=== PATIENT | male | born 1965 | race Caucasian/White ===

== ENCOUNTER 2020-11-14 20:08 | Inpatient (IN) | payer OTHER, SELFPAY ==
--- NOTE | 2020-11-14 20:10 | ECG_ITS ---
Test Reason : CHEST PAIN Blood Pressure : / mmHG Vent. Rate : 105 BPM Atrial Rate : 105 BPM P-R Int : 176 ms QRS Dur : 130 ms QT Int : 358 ms P-R-T Axes : 007 -66 085 degrees QTc Int : 473 ms Sinus tachycardia with Fusion complexes Left anterior fascicular block Left ventricular hypertrophy with QRS widening T wave abnormality, consider lateral ischemia Abnormal ECG No previous ECGs available Referred By: Generic ED Physician Electronically Signed By:THOMAS NGUYEN MD
[2020-11-14 20:14] VITALS: BP 184/111; PULSE 108; RESP 16; TEMP 36.8; O2SAT 98; BMI 49.2
[2020-11-14 21:39] VITALS: BP 153/104; PULSE 102; RESP 16; TEMP 36.6; O2SAT 99
[2020-11-14 21:56] LABS: MANUAL DIFF FLAG NO
[2020-11-14 21:57] LABS: Basophils Absolute Auto 0.1 X10*3/uL (0.0-0.2); Basophils Percent Auto 0.4 % (0-2); Eosinophils Absolute Auto 0.6 X10*3/uL (0.0-0.4); Eosinophils Percent Auto 5.4 % (0-4); Hematocrit 46.7 % (42-52); Hemoglobin 15.2 g/dl (14.0-18.0); Imm Gran Abs Auto 0.06 X10*3/uL (0.00-0.03); Imm Gran Pct Auto 0.5 % (0.0-0.4); Lymphocytes Absolute Auto 2.7 X10*3/uL (1.2-4.9); Mean Corpuscular HGB Conc 32.5 g/dl (31.0-36.0); Mean Corpuscular Hemoglobin 28.3 pg (27.0-33.0); Mean Platelet Volume 10.3 fL (9.4-12.4); Monocytes Absolute Auto 1.2 X10*3/uL (0.1-1.2); Monocytes Percent Auto 9.7 % (2-11); Neutrophils Absolute Auto 7.3 X10*3/uL (2.0-8.3); Platelet Count 346 X10*3/uL (160-400); Red Blood Count 5.37 X10*6/uL (4.60-5.80); Red Cell Distribution Width 13.9 % (11.0-16.0); White Blood Count 11.9 X10*3/uL (4.8-10.8)
[2020-11-14 22:21] LABS: Alanine Aminotransferase 46 U/L (0-40); Albumin Level 4.1 g/dL (3.5-5.0); Alkaline Phosphatase 65 U/L (39-117); Anion Gap 14 (12-20); Aspartate Amino Transferase 39 U/L (5-37); Bilirubin Total 0.6 mg/dL (0.0-1.0); Blood Urea Nitrogen 10 mg/dL (9-16); Calcium 8.8 mg/dL (8.4-10.2); Carbon Dioxide 32 mmol/L (22-29); Chloride 104 mmol/L (96-108); Creatinine Clr Calc Pharmacy 100.8; Estimated Glomerular Filt Rate > 60; Glucose Random 84 mg/dL (60-115); Potassium 4.1 mmol/l (3.3-5.1); Sodium 146 mmol/L (135-145)
[2020-11-14 22:25] LABS: Troponin-I High Sensitivity 20.5 ng/L (<3.5-35.0)
--- NOTE | 2020-11-14 22:52 | ED_ITS ---
HPI - Chest Pain General Chief Complaint: Chest Pain Stated Complaint: chest pain Time Seen by Provider: 11/14/20 22:52 Source: patient Mode of arrival: ambulatory Limitations: no limitations History of Present Illness HPI narrative: Patient's history of hypertension coronary disease status post stents about 4 years ago, cva, congestive heart failure paroxysmal AFib on Plavix comes here for chest pain since 08:00 while at rest patient feels chest heavy specially mid chest with radiation of pain to the right arm pain been off and on all day comes and goes states for few minutes also patient noticed numbness of the both lips since morning no motor weakness otherwise. Denies any increase in shortness of breath. Patient has chronic leg edema and is on diuretics patient took 4 baby aspirin today and 3 nitroglycerin spray without significant relief. Since patient had stent placed 4 years ago he had been h aving chest pain off and on but this time chest pain was more severe MD complaint: chest pain Pertinent past history: coronary artery disease and [employer] Onset (ago): hour(s) Timing of current episode: episodic Prior episodes: Yes Onset: during rest Pain location: substernal Pain radiation: right arm Severity: moderate Quality: heaviness and similar to prior IA Relieving factors: nothing Exacerbating factors: nothing Treatment prior to arrival: aspirin and nitroglycerin Related Data Allergies Allergy/AdvReac Type Severity Reaction Status Date / Time bee pollen [bee stings] Allergy Unknown Verified 11/14/20 20:13 hydromorphone [From Dilaudid] Allergy Unknown Verified 11/14/20 20:13 ketorolac [From Toradol] Allergy Unknown Verified 11/14/20 20:13 Penicillins Allergy Unknown Verified 11/14/20 20:13 tramadol Allergy Unknown Verified 11/14/20 20:13 Review of Systems Review of Systems: Constitutional : No Weight loss, No Fever, No Chills ENT/Mouth : No sore throat, No Rhinorrhea Eyes: No Eye Pain, No Swelling Cardiovascular : ++ Chest Pain, no palpitations Respiratory : No Cough, No Sputum, +++shortness of breath Gastrointestinal : no Nausea, No Vomiting, No Diarrhea, No abdominal Pain, no black stools Genitourinary : No Dysuria, No Urinary Frequency Musculoskeletal : No joint pain, No Myalgias, No Joint Swelling, leg swelling present Skin : No Skin Lesions, No rash Neuro : No Weakness, No Numbness, No Dizziness, No Headache Psych : No Anxiety/Panic, No Depression Heme/Lymph: No Bruising, No Lymphadenopathy Endocrine : No Polyuria, No Polydipsia All other systems reviewed and are negative [facility] Past Medical History Medical History CHF (congestive heart failure) High blood pressure Stroke Surgical History History of heart artery stent Social History Social History Alcohol intake: never Smoking Status: Never smoker Use of substances other than those prescribed or required for medical reasons: No Advance Directives: No Physical Exam Vital Signs: Vital Signs: Last Vital Signs Temp 97.8 F 11/14/20 21:39 Pulse 97 11/14/20 23:19 Resp 20 11/14/20 23:19 BP 142/109 H 11/14/20 23:19 Pulse Ox 94 11/14/20 23:19 Body Mass Index 49.2 Const: General: cooperative, healthy appearing, comfortable and no acute distress Nutritional Appearance: obese Orientation/consciousness: patient oriented x3 HENMT: Head: Yes normal to inspection and Yes normocephalic Ears: hearing grossly normal bilaterally, external ears normal and mastoids normal General nose exam: Normal external nose present Face and sinus: Yes normal facial exam Mouth: Normal oral and palatal mucosa present Teeth and gingiva: d entition normal Throat: Yes posterior oropharynx normal Eyes: General: appearance normal, both eyes and all related structures Neck: Neck: Yes normal visual inspection and Yes full ROM Chest: Chest palpation & inspection: normal inspection of the chest Resp: Effort & Inspection: normal respiratory effort Auscultation: clear to auscultation bilaterally, no crackles, no rales, no rhonchi and no wheezes Cardio: Jugular venous distension: no JVD Rate: regular rate Rhythm: regular rhythm Heart sounds: S1 normal heart sound present, S2 normal heart sound present and no murmurs Peripheral pulses: Peripheral pulses 2+ throughout GI: Inspection: Yes normal to inspection Palpation (GI): Soft to palpation and nontender Auscultation: normal bowel sounds Back/Spine/Pelvis: Thoracic/Lumbar Spine: thoracic and lumbar spine normal to inspection Skin: General skin exam: no rashes or lesions noted Neuro: General: patient oriented x3 and no focal motor deficits Extrem: General: Yes full ROM, Yes no calf tenderness and Yes pedal edema (4+ leg edema bilateral) MDM - Chest Pain MDM Narrative Medical decision making narrative: Patient with significant history of coronary artery disease with risk factors came with chest pain EKG showed fusion complexes without any acute ST T wave changes initial troponin was slightly elevated 20.5 repeat troponin was without any significant delta change patient feeling better after morphine. Head CT was done for lip numbness which is negative for any acute stroke. Will admit patient for unstable angina and further evaluation Differential Diagnosis Differential diagnosis: Likely stable angina, unstable angina pectoris and chest pain Lab Data Attestation: I reviewed the patient's lab results. Result diagrams: 11/14/20 21:38 11/14/20 21:38 Labs: Lab Results 11/14/20 11/14/20 11/14/20 Range/Units 21:38 21:38 21:38 WBC 11.9 H (4.8-10.8) X10*3/uL RBC 5.37 (4.60-5.80) X10*6/uL Hgb 15.2 (14.0-18.0) g/dl Hct 46.7 (42-52) % MCV 87.0 (80-98) fL MCH 28.3 (27.0-33.0) pg MCHC 32.5 (31.0-36.0) g/dl RDW 13.9 (11.0-16.0) % Plt Count 346 (160-400) X10*3/uL MPV 10.3 (9.4-12.4) fL Immature Gran % (Auto) 0.5 H (0.0-0.4) % Neut % (Auto) 61.0 (45-73) % Lymph % (Auto) 23.0 (20-40) % [place] % (Auto) 9.7 (2-11) % Eos % (Auto) 5.4 H (0-4) % Baso % (Auto) 0.4 (0-2) % Lymph # (Auto) 2.7 (1.2-4.9) X10*3/uL [place] # (Auto) 1.2 (0.1-1.2) X10*3/uL Eos # (Auto) 0.6 H (0.0-0.4) X10*3/uL Baso # (Auto) 0.1 (0.0-0.2) X10*3/uL Abs Immat Gran (auto) 0.06 H (0.00-0.03) X10*3/uL Absolute Neuts (auto) 7.3 (2.0-8.3) X10*3/uL Absolute Nucleated RBC 0.000 (0.0-0.012) X10*3/uL Nucleated RBC % (auto) 0.0 (0.0-0.2) /100WBC PT 12.6 (10.8-13.0) SEC INR 1.1 (0.9-1.1) APTT 35.2 (24.1-38.0) SEC Hold Blue Top SEE NOTE Sodium 146 H (135-145) mmol/L Potassium 4.1 (3.3-5.1) mmol/l Chloride 104 (96-108) mmol/L Carbon Dioxide 32 H (22-29) mmol/L Anion Gap 14 (12-20) BUN 10 (9-16) mg/dL Creatinine 1.19 (0.5-1.4) mg/dL Estim Creat Clear Calc 100.8 Estimated GFR > 60 Random Glucose 84 (60-115) mg/dL Calcium 8.8 (8.4-10.2) mg/dL Total Bilirubin 0.6 (0.0-1.0) mg/dL AST 39 H (5-37) U/L ALT 46 H (0-40) U/L Alkaline Phosphatase 65 (39-117) U/L Troponin I High Sens (<3.5-35.0) ng/L B-Natriuretic Peptide (<100) pg/mL Total Protein 7.0 (6.5-8.0) g/dL Albumin 4.1 (3.5-5.0) g/dL COVID-19 ([facility]I) (Negative) COVID-19 Clin Com 11/14/20 11/14/20 11/14/20 Range/Units 21:38 23:12 23:12 WBC (4.8-10.8) X10*3/uL RBC (4.60-5.80) X10*6/uL Hgb (14.0-18.0) g/dl Hct (42-52) % MCV (80-98) fL MCH (27.0-33.0) pg MCHC (31.0-36.0) g/dl RDW (11.0-16.0) % Plt Count (160-400) X10*3/uL MPV (9.4-12.4) fL Immature Gran % (Auto) (0.0-0.4) % Neut % (Auto) (45-73) % Lymph % (Auto) (20-40) % [place] % (Auto) (2-11) % Eos % (Auto) (0-4) % Baso % (Auto) (0-2) % Lymph # (Auto) (1.2-4.9) X10*3/uL [place] # (Auto) (0.1-1.2) X10*3/uL Eos # (Auto) (0.0-0.4) X10*3/uL Baso # (Auto) (0.0-0.2) X10*3/uL Abs Immat Gran (auto) (0.00-0.03) X10*3/uL Absolute Neuts (auto) (2.0-8.3) X10*3/uL Absolute Nucleated RBC (0.0-0.012) X10*3/uL Nucleated RBC % (auto) (0.0-0.2) /100WBC PT (10.8-13.0) SEC INR (0.9-1.1) APTT (24.1-38.0) SEC Hold Blue Top Sodium (135-145) mmol/L Potassium (3.3-5.1) mmol/l Chloride (96-108) mmol/L Carbon Dioxide (22-29) mmol/L Anion Gap (12-20) BUN (9-16) mg/dL Creatinine (0.5-1.4) mg/dL Estim Creat Clear Calc Estimated GFR Random Glucose (60-115) mg/dL Calcium (8.4-10.2) mg/dL Total Bilirubin (0.0-1.0) mg/dL AST (5-37) U/L ALT (0-40) U/L Alkaline Phosphatase (39-117) U/L Troponin I High Sens 20.5 21.2 (<3.5-35.0) ng/L B-Natriuretic Peptide 44 (<100) pg/mL Total Protein (6.5-8.0) g/dL Albumin (3.5-5.0) g/dL COVID-19 ([facility]I) Negative (Negative) COVID-19 Clin Com See Note ECG Data ECG #1: Interpretation: Sinus tachycardia with fusion complexes ventricular rate 105 beats per minute left axis deviation left ventricular hypertrophy no acute ST elevation Discharge Plan Discharge Clinical Impression: Unstable angina pectoris Patient Disposition: Admitted As Inpatient
[2020-11-14 23:13] LABS: INTERNATIONAL NORM RATIO 1.1 (0.9-1.1); Prothrombin Time 12.6 SEC (10.8-13.0)
[2020-11-14 23:16] LABS: Partial Thromboplastin Time 35.2 SEC (24.1-38.0)
[2020-11-14 23:19] VITALS: BP 142/109; PULSE 97; RESP 20; O2SAT 94
[2020-11-14] MEDS: Nitroglycerin 2 % Oint 1 GM Packet 1 INCH TRANSDERMA (23:19)
[2020-11-14] MEDS: Morphine Sulfate 4 MG/ML CARTRIDGE IVPUSH (23:20)
[2020-11-14 23:36] LABS: COVID-19 Test Negative (Negative); IDNOW Serial# 9DD0AD1C
[2020-11-14 23:47] LABS: Troponin-I High Sensitivity 21.2 ng/L (<3.5-35.0)
[2020-11-15] VITALS (11 sets, daily range): BP systolic 129–157; BP diastolic 65–109; PULSE 85–114; RESP 15–20; TEMP 36.6–37.1; O2SAT 2–96; BMI 48.8
--- NOTE | 2020-11-15 | CT_ITS ---
EXAMINATION: CT HEAD WITHOUT CONTRAST CLINICAL INFORMATION: Numbness of the lips. Question thalamic stroke COMPARISON: None TECHNIQUE: Contiguous axial imaging was performed from the skull base to vertex without intravenous administration of contrast. This CT examination was performed using dose optimization techniques as appropriate, variously including the following: *Automated exposure control *Adjustment of mA and/or kV according to patient size (this includes techniques or standardized protocols for targeted exams where dose is matched to indication/reason for exam; i.e. extremities or head) *Use of iterative reconstruction technique DLP: 836 mGy-cm FINDINGS: There is no evidence of acute intracranial hemorrhage or territorial infarction. No abnormal mass effect or midline shift is seen. Villavicencio to white matter differentiation is well preserved. No extra-axial fluid collections are identified. The ventricles are normal in size. There is no abnormal attenuation within the brain parenchyma. The thalami, in particular, are normal in attenuation. Incidental note is made of dolichoectasia of the intramural portion of the right vertebral artery. The osseous structures and soft tissues are normal. Bilateral mastoid effusions are noted. Paranasal sinuses are clear.. CT/CT head/brain wo con IMPRESSION: No acute intracranial pathology. Bilateral mastoid effusions. Recommend correlation for symptoms of mastoiditis.
[2020-11-15] MEDS: ondansetron HCL 4 MG/2 ML VIAL IVPUSH (00:53)
[2020-11-15] MEDS: Morphine Sulfate 4 MG/ML CARTRIDGE IVPUSH (00:54)
[2020-11-15 00:56] LABS: B Type Natriuretic Peptide 44 pg/mL (<100)
[2020-11-15] MEDS: Furosemide 100 MG/10 ML VIAL 60 MG IVPUSH ×2 (01:45→13:34)
--- NOTE | 2020-11-15 05:43 | XR_ITS ---
EXAMINATION: XR CHEST CLINICAL INFORMATION: Shortness of breath COMPARISON: None TECHNIQUE: Frontal view of the chest was obtained. FINDINGS: EKG leads overlie the chest. There is a linear opacity at the left lung base which contacts the left hemidiaphragm. No additional airspace opacities. No pneumothorax or pleural effusion. Cardiac and mediastinal contours are normal. Pulmonary vascular is unremarkable. No acute osseous findings. XR/XR chest 1V IMPRESSION: Linear opacities at left lung base contacting left hemidiaphragm, likely atelectasis. Pneumonia is also possible.
--- NOTE | 2020-11-15 07:11 | PM.IMHP ---
History of Present Illness Date of Service: 11/15/20 Chief Complaint: Chest pain This is a 55-year-old male with past medical history of AFib, coronary artery disease, CHF, hypertension, anxiety who presents to the hospital with complaints of chest pain. Patient describes the chest pain as midsternal, heavy something sitting on my chest , occurring at rest, intermittent, radiating to the right arm, associated with shortness of breath, no nausea or vomiting, no abdominal pain diarrhea constipation. Patient has also noticed swelling in his legs for the past 2-3 weeks, he has shortness of breath on exertion, orthopnea, PND. he has also noticed numbness around his lips with no weakness in arms or legs. No slurred speech or changes to his speech from baseline, and no droopiness of his face. Patient denies having any cough or sputum production. No fever or chills. A temp of 98.3?, heart rate of 108, respiratory rate of 16, blood pressure 184/111 which is now 155/109, O2 of 98% on room air although did desat and is now on 2 L of oxygen unclear how low his O2 went down to Labs are significant for WBC count of 11.9, sodium of 146, BUN of 10, creatinine of 1.19 (no baseline), AST of 39, ALT of 46, BNP of 44, COVID-19 negative, initial troponin of 20 trended to 21 with no delta Chest x-ray shows linear opacities at left lung base contact EKG shows fusion complexes with no evidence of ST T-wave changes suggestive of ACS Past medical history: AFib, CAD status post stent, CHF, hypertension, hyperlipidemia, depression and anxiety, Surgical history: Denies Family history: Denies Social history: Comes from home, denies tobacco alcohol or illicit drugs at this time Review of Systems Review of Systems: Yes all other systems are reviewed and are negative [facility] Medical History (Updated 11/15/20 @ 07:27 by Canelo Martinez MD) CHF (congestive heart failure) High blood pressure History of coronary artery disease Hyperlipidemia Paroxysmal A-fib Stroke Surgical History History of heart artery stent Social History Alcohol intake: never Smoking Status: Never smoker Use of substances other than those prescribed or required for medical reasons: No Advance Directives: No Meds Allergies Allergy/AdvReac Type Severity Reaction Status Date / Time bee pollen [bee stings] Allergy Unknown Verified 11/14/20 20:13 hydromorphone [From Dilaudid] Allergy Unknown Verified 11/14/20 20:13 ketorolac [From Toradol] Allergy Unknown Verified 11/14/20 20:13 Penicillins Allergy Unknown Verified 11/14/20 20:13 tramadol Allergy Unknown Verified 11/14/20 20:13 Home Medications Medication Instructions Recorded Confirmed Type aripiprazole 1 tab PO QAM 11/15/20 11/15/20 History atorvastatin 1 tab PO DAILY 11/15/20 11/15/20 History buspirone 1 tab PO TID 11/15/20 11/15/20 History carvedilol 1 tab PO BID 11/15/20 11/15/20 History fluoxetine 3 cap PO DAILY 11/15/20 11/15/20 History furosemide 1 tab PO BID 11/15/20 11/15/20 History lamotrigine 1 tab PO DAILY 11/15/20 11/15/20 History lorazepam 1 tab PO DAILY 11/15/20 11/15/20 History lurasidone [Latuda] 1 tab PO QAM 11/15/20 11/15/20 History nitroglycerin 1 spray SUBLINGUAL DIRECTED 11/15/20 11/15/20 History prazosin 1 cap PO BEDTIME 11/15/20 11/15/20 History Physical Exam Vital Signs and Narrative: Vital Signs: Last Vital Signs Temp 97.8 F 11/15/20 05:29 Pulse 104 H 11/15/20 06:21 Resp 16 11/15/20 06:21 BP 155/109 H 11/15/20 06:21 Pulse Ox 96 11/15/20 06:21 Body Mass Index 48.8 Const: General: cooperative and no acute distress Orientation/consciousness: patient oriented x3 Eyes: General: appearance normal, both eyes and all related structures Chest: Other: Reproducible midsternal chest pain on palpation Resp: Effort & Inspection: normal respiratory effort and able to speak in complete sentences Auscultation: clear to auscultation bilaterally Cardio: Rate: regular rate Rhythm: regular rhythm GI: Palpation (GI): Soft to palpation Auscultation: normal bowel sounds Skin: General skin exam: no rashes or lesions noted Neuro: General: patient oriented x3 Cognition (Neuro): normal cognition Extrem: Other: Has 2+ lower extremity edema bilaterally General: Yes normal to inspection Results Labs CBC and Chem 7: 11/14/20 21:38 11/14/20 21:38 Labs: Laboratory Results - last 24 hr 11/14/20 11/14/20 11/14/20 21:38 21:38 21:38 MCV 87.0 MCH 28.3 MCHC 32.5 RDW 13.9 Plt Count 346 MPV 10.3 Immature Gran % (Auto) 0.5 H Neut % (Auto) 61.0 Lymph % (Auto) 23.0 [place] % (Auto) 9.7 Eos % (Auto) 5.4 H Baso % (Auto) 0.4 Lymph # (Auto) 2.7 [place] # (Auto) 1.2 Eos # (Auto) 0.6 H Baso # (Auto) 0.1 Abs Immat Gran (auto) 0.06 H Absolute Neuts (auto) 7.3 Absolute Nucleated RBC 0.000 Nucleated RBC % (auto) 0.0 PT 12.6 INR 1.1 APTT 35.2 Hold Blue Top SEE NOTE Anion Gap 14 Estim Creat Clear Calc 100.8 Estimated GFR > 60 Random Glucose 84 Calcium 8.8 Total Bilirubin 0.6 AST 39 H ALT 46 H Alkaline Phosphatase 65 Troponin I High Sens B-Natriuretic Peptide Total Protein 7.0 Albumin 4.1 COVID-19 ([facility]) COVID-Duroline Com 11/14/20 11/14/20 11/14/20 21:38 23:12 23:12 MCV MCH MCHC RDW Plt Count MPV Immature Gran % (Auto) Neut % (Auto) Lymph % (Auto) [place] % (Auto) Eos % (Auto) Baso % (Auto) Lymph # (Auto) [place] # (Auto) Eos # (Auto) Baso # (Auto) Abs Immat Gran (auto) Absolute Neuts (auto) Absolute Nucleated RBC Nucleated RBC % (auto) PT INR APTT Hold Blue Top Anion Gap Estim Creat Clear Calc Estimated GFR Random Glucose Calcium Total Bilirubin AST ALT Alkaline Phosphatase Troponin I High Sens 20.5 21.2 B-Natriuretic Peptide 44 Total Protein Albumin COVID-19 ([facility]) Negative COVID-FRESS Clin Com See Note Imaging Radiologist's Impressions: Impressions Head CT 11/15/20 00:00 IMPRESSION: No acute intracranial pathology. Bilateral mastoid effusions. Recommend correlation for symptoms of mastoiditis. Chest X-Ray 11/15/20 05:43 IMPRESSION: Linear opacities at left lung base contacting left hemidiaphragm, likely atelectasis. Pneumonia is also possible. Assessment and Plan (1) Unstable angina pectoris: Status: Acute (2) Acute exacerbation of CHF (congestive heart failure): Qualifiers: Heart failure type: unspecified Qualified Code(s): I50.9 - Heart failure, unspecified Status: Acute This is a 55-year-old male with history of CHF, CAD who presents to the hospital with complaints of chest pain as well as dyspnea on exertion, orthopnea, PND # unstable angina - although sounds typical he also has reproducible chest pain - high sensitivity troponin slightly elevated with no delta - EKG shows fusion complexes with no ST T wave changes suggestive of ACS - has history of CAD 4 years ago status post stent placement Plan: - will admit to the hospital her cardiogram and consult Cardiology for further recommendation - nitroglycerin p.r.n. for chest pain # CHF exacerbation - although BNP is negative patient is very obese and may be falsely low - has dyspnea on exertion, orthopnea, PND, lower extremity edema, - on furosemide 80 mg at home - chest x-ray as above Plan: - will start him on Lasix 60 mg IV b.i.d. - strict I&O, daily weight, low-sodium diet - echocardiogram, cardiology consult # history of coronary artery disease - continue carvedilol, does not appear to be on aspirin # paroxysmal AFib - on carvedilol - does not appear to be on anticoagulation and is unclear why # depression anxiety - continue home meds of lorazepam, prazosin, fluoxetine, and buspirone as well as aripiprazole Prophylaxis: Heparin subQ
[2020-11-15] MEDS: Acetaminophen 325 MG TABLET 650 MG PO (08:40)
[2020-11-15] MEDS: LORazepam 1 MG TABLET PO (08:41)
[2020-11-15] MEDS: ARIPiprazole 30 MG TABLET PO (08:41)
[2020-11-15] MEDS: lamoTRIgine 100 MG TABLET PO (08:41)
[2020-11-15] MEDS: busPIRone HCl 5 MG TABLET PO ×3 (08:41→21:08)
[2020-11-15] MEDS: carvediloL 25 MG TABLET PO ×2 (08:43→21:07)
[2020-11-15] MEDS: Heparin Sodium,Porcine 5,000 UNIT/ML VIAL 5000 UNIT SUBCUT ×2 (08:44→19:39)
--- NOTE | 2020-11-15 08:50 | PC.NURSE ---
pt took only 1/2 tab (15mg) of his ability 30mg tab. pt states that all he takes and his md is aware because it makes him loopy pt refused his prozac 60mg and latuda 40mg states that he does not take these meds any more.
--- NOTE | 2020-11-15 09:28 | PC.NURSE ---
Pt expressing desire to leave AMA. He states he feels better and doesn't want to take up a bed when a sicker pt might need it. Risks discussed with pt. Dr Morrell notified, as well, will come see the pt.
--- NOTE | 2020-11-15 09:47 | PM.EVENT ---
Event Note Date of Service: 11/15/20 Event Note: Went to see the patient. Patient says he is going to sign against medical illness and wants to go home. Discussed with him in the risk. If patient decides to stay, will follow-up with her consult. Please advise as to when patient decides to be admitted as inpatient.
--- NOTE | 2020-11-15 11:33 | PM.CNCAR ---
History of Present Illness History of Present Illness Date of Service: 11/15/20 Requesting physician: Alena Morrell Consult reason: congestive heart failure Chief complaint: R/O ACS Narrative: We were consulted to see Brian because of chest discomfort and progressive shortness of breath and heart failure. He is a 55-year-old man with prior CAD with diagnose stenting, morbid obesity, hypertension, leg edema on chronic diuretic therapy at home. Patient came to the hospital, had seen primary cardiology in October when he had progressive leg edema. His Lasix was increased. However he continued to have progressive leg edema, weight gain, shortness of breath and yesterday came with retrosternal chest pressure. His initial troponins and subsequent troponins are slightly elevated but flat. His BNP is normal limits but clinical findings consistent with heart failure with fluid overload. He has been admitted. He was diuresed and given IV Lasix and has diuresed and feels better. However still remains fluid overloaded and Cardiology consult was called from further management plan. He remains on dual antiplatelet therapy for unclear reason. His last stenting as per him was 2015 at best. I have last cardiac catheterization from 2007 at [facility] which had shown nonobstructive CAD. He had an echocardiogram last August at [facility] which had shown normal LV systolic function with early diastolic dysfunction with mild LVH. Review of Systems Constitutional: Constitutional: Denies chills, Denies fever(s) and Reports weight gain Cardiovascular: Cardiovascular: Reports chest pain, Denies lightheadedness, Denies Loss of Consciousness, Denies palpitations, Reports dyspnea and Reports dyspnea on exertion Respiratory: Respiratory: Denies cough, Denies excessive phlegm production, Reports dyspnea and Reports dyspnea on exertion Gastrointestinal: Gastrointestinal: Reports no additional gastrointestinal complaints Musculoskeletal: Musculoskeletal: Reports no additional musculoskeletal complaints Neurologic: Reports system reviewed and no additional complaints, except as documented Psychiatric: Psychiatric: Reports no additional psychiatric complaints Endocrine: Endocrine: Reports no additional endocrine complaints and Denies palpitations PMFSH Past Medical History Medical History (Updated 11/15/20 @ 11:38 by Santos Griffin MD) CAD (coronary artery disease) CHF (congestive heart failure) High blood pressure History of coronary artery disease Hyperlipidemia Paroxysmal A-fib Stroke Surgical History Surgical History History of heart artery stent Social History Social History Alcohol intake: never Smoking Status: Never smoker Use of substances other than those prescribed or required for medical reasons: No Advance Directives: No Meds Allergies Allergy/AdvReac Type Severity Reaction Status Date / Time bee pollen [bee stings] Allergy Unknown Verified 11/14/20 20:13 hydromorphone [From Dilaudid] Allergy Unknown Verified 11/14/20 20:13 ketorolac [From Toradol] Allergy Unknown Verified 11/14/20 20:13 Penicillins Allergy Unknown Verified 11/14/20 20:13 tramadol Allergy Unknown Verified 11/14/20 20:13 Home Medications Medication Instructions Recorded Confirmed Type aripiprazole 1 tab PO QAM 11/15/20 11/15/20 History aspirin 81 mg PO DAILY 11/15/20 11/15/20 History atorvastatin 1 tab PO DAILY 11/15/20 11/15/20 History buspirone 1 tab PO TID 11/15/20 11/15/20 History carvedilol 1 tab PO BID 11/15/20 11/15/20 History clopidogrel 75 mg PO DAILY 11/15/20 11/15/20 History fluoxetine 3 cap PO DAILY 11/15/20 11/15/20 History furosemide 1 tab PO BID 11/15/20 11/15/20 History isosorbide mononitrate 30 mg PO QAM 11/15/20 11/15/20 History lamotrigine 1 tab PO DAILY 11/15/20 11/15/20 History lorazepam 1 tab PO DAILY 11/15/20 11/15/20 History lurasidone [Latuda] 1 tab PO QAM 11/15/20 11/15/20 History nitroglycerin 1 spray SUBLINGUAL DIRECTED 11/15/20 11/15/20 History prazosin 1 cap PO BEDTIME 11/15/20 11/15/20 History Physical Exam Vital Signs: Vital Signs: Last Vital Signs Temp 98.5 F 11/15/20 10:57 Pulse 91 11/15/20 10:57 Resp 20 11/15/20 10:57 BP 156/93 H 11/15/20 10:57 Pulse Ox 96 11/15/20 10:57 Body Mass Index 48.8 Const: General: cooperative, comfortable, no acute distress, alert and awake Nutritional Appearance: obese morbidly obese Orientation/consciousness: patient oriented x3 HENMT: Head: Yes normocephalic and Yes atraumatic Neck: Neck: Yes trachea midline, Yes supple and Yes other (JVD difficult to assess) Chest: Chest palpation & inspection: normal inspection of the chest Resp: Effort & Inspection: normal respiratory effort Auscultation: clear to auscultation bilaterally Cardio: Rate: regular rate Rhythm: regular rhythm Heart sounds: S1 normal heart sound present and S2 normal heart sound present GI: Inspection: Yes Abdominal panniculus present and Yes obesity Auscultation: normal bowel sounds Skin: General skin exam: no rashes or lesions noted Neuro: General: patient oriented x3 Extrem: General: No clubbing, No cyanosis and Yes edema Results Labs and Meds Result diagrams: 11/14/20 21:38 11/14/20 21:38 Lab results: Laboratory Results - last 24 hr 11/14/20 11/14/20 11/14/20 21:38 21:38 21:38 WBC 11.9 H RBC 5.37 Hgb 15.2 Hct 46.7 MCV 87.0 MCH 28.3 MCHC 32.5 RDW 13.9 Plt Count 346 MPV 10.3 Immature Gran % (Auto) 0.5 H Neut % (Auto) 61.0 Lymph % (Auto) 23.0 Mcminn % (Auto) 9.7 Eos % (Auto) 5.4 H Baso % (Auto) 0.4 Lymph # (Auto) 2.7 Mcminn # (Auto) 1.2 Eos # (Auto) 0.6 H Baso # (Auto) 0.1 Abs Immat Gran (auto) 0.06 H Absolute Neuts (auto) 7.3 Absolute Nucleated RBC 0.000 Nucleated RBC % (auto) 0.0 PT 12.6 INR 1.1 APTT 35.2 Hold Blue Top SEE NOTE Sodium 146 H Potassium 4.1 Chloride 104 Carbon Dioxide 32 H Anion Gap 14 BUN 10 Creatinine 1.19 Estim Creat Clear Calc 100.8 Estimated GFR > 60 Random Glucose 84 Calcium 8.8 Total Bilirubin 0.6 AST 39 H ALT 46 H Alkaline Phosphatase 65 Troponin I High Sens B-Natriuretic Peptide Total Protein 7.0 Albumin 4.1 COVID-19 ([facility]) COVID-19 Clin Com 11/14/20 11/14/20 11/14/20 21:38 23:12 23:12 WBC RBC Hgb Hct MCV MCH MCHC RDW Plt Count MPV Immature Gran % (Auto) Neut % (Auto) Lymph % (Auto) Mcminn % (Auto) Eos % (Auto) Baso % (Auto) Lymph # (Auto) Mcminn # (Auto) Eos # (Auto) Baso # (Auto) Abs Immat Gran (auto) Absolute Neuts (auto) Absolute Nucleated RBC Nucleated RBC % (auto) PT INR APTT Hold Blue Top Sodium Potassium Chloride Carbon Dioxide Anion Gap BUN Creatinine Estim Creat Clear Calc Estimated GFR Random Glucose Calcium Total Bilirubin AST ALT Alkaline Phosphatase Troponin I High Sens 20.5 21.2 B-Natriuretic Peptide 44 Total Protein Albumin COVID-19 (NAOMI) Negative COVID-19 Clin Com See Note EKG shows sinus tachycardia with LVH with repolarization abnormality Imaging Radiologist's impression: Impressions Head CT 11/15/20 00:00 IMPRESSION: No acute intracranial pathology. Bilateral mastoid effusions. Recommend correlation for symptoms of mastoiditis. Chest X-Ray 11/15/20 05:43 IMPRESSION: Linear opacities at left lung base contacting left hemidiaphragm, likely atelectasis. Pneumonia is also possible. Assessment and Plan (1) Acute exacerbation of CHF (congestive heart failure): Qualifiers: Heart failure type: unspecified Qualified Code(s): I50.9 - Heart failure, unspecified Status: Acute Clinical presentation consistent with acute heart failure exacerbation. Continue IV diuresis. Strict intake and output chart needs to be pursued. BNP appears to be falsely negative given his body habitus. High likelihood of underlying obstructive sleep apnea. Should consider workup as an outpatient. Continue to monitor renal function. Once he has adequate diuresis can potentially be discharged home on his usual dose of Lasix. He would be a good candidate as an outpatient for CardioMEMS device for future management of his fluid status. Blood pressure is not well controlled. Add Aldactone 25 mg to his regimen for both heart failure as well as better control of his blood pressure. There is reported history of atrial fibrillation, do not see any clear documentation [facility] chart about the same. Would avoid oral anticoagulation therapy. (2) CAD (coronary artery disease): Status: Acute CAD with stenting more than 4 years ago. Currently present with chest pain which most likely is related to elevated filling pressures rather than acute coronary syndrome. Troponins are flat and minimally elevated due to acute heart failure. No need for anticoagulation. Will continue to monitor. Can follow up with outpatient ischemic workup with his primary telegraph dispatcher. This clearly no indication for dual antiplatelet therapy at this point time. Would stop Plavix. Continue statin therapy. Continue aggressive blood pressure control. Will follow with the patient. Thank you for allowing us to partake in his care
--- NOTE | 2020-11-15 13:33 | MHC.CM.PN ---
CM met with Patient at bedside. 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 The goal for dc is to return home and CM has initiated and will follow for dc planning. PCP is Dr. Graeme Ayala, from [place]. IMM addressed with Patient and the original has been given to him and a copy has been placed on the chart.Patient's is his HCP, and his Sister will provide transportation back home.
[2020-11-15] MEDS: 0.9 % Sodium Chloride Flush 3 ML SYRINGE IVFLUSH ×3 (13:35→21:14)
[2020-11-15] MEDS: Aspirin Enteric Coated 81 MG TABLET.DR PO (13:35)
--- NOTE | 2020-11-15 16:09 | PC.NURSE ---
Patient admitted to [facility] as observation patient from ED at approximately 1200. Vitals stable on 2L NC. 60 mg IV lasix given with positive effect. No further complaints of chest pain. Will continue to monitor.
--- NOTE | 2020-11-15 17:51 | PM.EVENT ---
Event Note Date of Service: 11/16/20 Event Note: Patient seen and examined-came to the hospital because of chest pain and shortness of breath Shortness of breath progressively getting worse from last few days, but has chronically short of breath from couple of months. Patient says his chest tightness seems improving as well as shortness of breath-received Lasix in ed Physical exam: Constitutional: Not in acute distress Cvs: rrr, [id number] , no murmur res: clear to auscultation ,no rhonchii or wheezing abd: no rebound or guarding ,nt, bs present. ext pulses present , no cyanosis neuro: axo3 , nonfocal. Assessment and plan already documented in H&P note: acute heart failure exacerbation. Continue IV diuresis. Strict i/o. BNP appears to be falsely negative given his body habitus. Continue IV Lasix, Aldactone 25 mg . High likelihood of underlying obstructive sleep apnea. Should consider workup as an outpatient. Continue to monitor renal function. Add to his regimen for both heart failure as well as better control of his blood pressure. There is reported history of atrial fibrillation, do not see any clear documentation [facility] chart about the same. Would avoid oral anticoagulation therapy. CAD with stenting more than 4 years ago. : chest tightness probable sec to chf . Troponins are flat and minimally elevated due to acute heart failure. No need for anticoagulation. 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 This clearly no indication for dual antiplatelet therapy at this point time. Would stop Plavix and asa .
[2020-11-15] MEDS: Prazosin HCL 5 MG CAPSULE PO (21:08)
[2020-11-15] MEDS: Atorvastatin Calcium 40 MG TABLET PO (21:08)
[2020-11-16] VITALS: BP 112/54; PULSE 87; RESP 20; TEMP 36.9; O2SAT 95
[2020-11-16] MEDS: Furosemide 100 MG/10 ML VIAL 60 MG IVPUSH (01:26)
[2020-11-16 03:54] VITALS: BP 99/55; PULSE 92; RESP 18; TEMP 36.6; O2SAT 95
[2020-11-16 05:53] LABS: MANUAL DIFF FLAG NO
[2020-11-16 05:57] LABS: Basophils Percent Auto 0.4 % (0-2); Eosinophils Absolute Auto 0.6 X10*3/uL (0.0-0.4); Eosinophils Percent Auto 6.7 % (0-4); Hematocrit 46.7 % (42-52); Imm Gran Abs Auto 0.04 X10*3/uL (0.00-0.03); Imm Gran Pct Auto 0.4 % (0.0-0.4); Lymphocytes Absolute Auto 1.7 X10*3/uL (1.2-4.9); Lymphocytes Percent Auto 17.8 % (20-40); Mean Corpuscular HGB Conc 32.1 g/dl (31.0-36.0); Mean Corpuscular Hemoglobin 28.6 pg (27.0-33.0); Mean Corpuscular Volume 89.1 fL (80-98); Mean Platelet Volume 10.6 fL (9.4-12.4); Monocytes Absolute Auto 0.5 X10*3/uL (0.1-1.2); Monocytes Percent Auto 5.8 % (2-11); Neutrophils Absolute Auto 6.4 X10*3/uL (2.0-8.3); Neutrophils Percent Auto 68.9 % (45-73); Platelet Count 318 X10*3/uL (160-400); Red Blood Count 5.24 X10*6/uL (4.60-5.80); White Blood Count 9.3 X10*3/uL (4.8-10.8)
[2020-11-16 06:24] VITALS: BMI 47.4
[2020-11-16 06:44] LABS: Anion Gap 15 (12-20); Blood Urea Nitrogen 17 mg/dL (9-16); Calcium 8.8 mg/dL (8.4-10.2); Carbon Dioxide 36 mmol/L (22-29); Chloride 97 mmol/L (96-108); Creatinine Clr Calc Pharmacy 93.9; Estimated Glomerular Filt Rate 60; Glucose Random 143 mg/dL (60-115); Potassium 4.3 mmol/l (3.3-5.1); Sodium 144 mmol/L (135-145)
[2020-11-16 08:21] VITALS: BP 122/70; PULSE 75; RESP 20; TEMP 36.2; O2SAT 92
[2020-11-16] MEDS: Furosemide 100 MG/10 ML VIAL 40 MG IVPUSH (09:23)
[2020-11-16] MEDS: Heparin Sodium,Porcine 5,000 UNIT/ML VIAL 5000 UNIT SUBCUT (09:24)
[2020-11-16] MEDS: 0.9 % Sodium Chloride Flush 3 ML SYRINGE IVFLUSH (09:24)
[2020-11-16] MEDS: Lurasidone HCl 40 MG TABLET PO (09:25)
[2020-11-16] MEDS: LORazepam 1 MG TABLET PO (09:25)
[2020-11-16] MEDS: Spironolactone 25 MG TABLET PO (09:25)
[2020-11-16] MEDS: ARIPiprazole 30 MG TABLET PO (09:25)
[2020-11-16] MEDS: Aspirin Enteric Coated 81 MG TABLET.DR PO (09:25)
[2020-11-16] MEDS: FLUoxetine HCl 20 MG CAPSULE 60 MG PO (09:25)
[2020-11-16] MEDS: busPIRone HCl 5 MG TABLET PO (09:25)
[2020-11-16] MEDS: lamoTRIgine 100 MG TABLET PO (09:25)
[2020-11-16 11:34] VITALS: BMI 47.4
--- NOTE | 2020-11-16 12:14 | P.CDIC_ITS ---
CDI Concurrent Query Service Date: 11/16/20 Documentation Clarification: Please clarify if you are treating a proba ble/suspected/likely or confirmed: Acute Diastolic CHF Acute Systolic CHF Acute Diastolic and Systolic CHF Acute on Chronic Diastolic CHF Acute on Chronic Systolic CHF Acute on Chronic Diastolic and Systolic CHF- yes . Provider Response: Other Other Diagnosis: chf acute on ch ( systolic/diastolic) PLEASE DO NOT DELETE/MODIFY EXISTING CONTENT Additional information is needed in order to code to the highest accuracy and appropriate Severity of Illness (SOI). Please clarify the information noted below in your progress notes and discharge summary. Risk Factors/Clinical Indicators/Treatments 55 year old male admitted with chest pain right arm pain, edema PMH: HTN, CAD sp stents, CVA, CHF, Paroxysmal Atrial Fibrillation BNP 44 Per H&P: Acute Exacerbation CHF Per Cardiology Consult, ECHO last done at [facility] August 2020, normal LV systolic function with early diastolic dysfunction with mild LVH CDS: Vannesa Mortensen RN Contact Number: [phone] Please Review the information above and exercise your independent professional judgment in responding to the query. If you concur, pleas document in the PROGRESS NOTES and DISCHARGE SUMMARY. If you do not agree with the query, please document in the query above. THIS QUERY IS PART OF THE PERMANENT MEDICAL RECORD
--- NOTE | 2020-11-16 12:19 | P.DS_ITS ---
DS: Providers Provider Date of Service: 11/16/20 Date of admission: 11/15/20 01:13 Primary care physician: Unknown Physician Consults: 11/15/20 01:13 Consult to Cardiology Routine Consulting Provider: Santos Griffin Reason for consultation: chf?, typical chest pain, r/o ACS Has provider been notified: No DS: Diagnosis Discharge Diagnosis (1) Acute exacerbation of CHF (congestive heart failure): Status: Acute (2) CAD (coronary artery disease): Status: Acute DS: Medications Discharge Medications Home Medications: Home Medications Medication Instructions Recorded Confirmed aripiprazole 1 tab PO QAM 11/15/20 11/15/20 aspirin 81 mg PO DAILY 11/15/20 11/15/20 atorvastatin 1 tab PO DAILY 11/15/20 11/15/20 buspirone 1 tab PO TID 11/15/20 11/15/20 carvedilol 1 tab PO BID 11/15/20 11/15/20 clopidogrel 75 mg PO DAILY 11/15/20 11/15/20 fluoxetine 3 cap PO DAILY 11/15/20 11/15/20 furosemide 1 tab PO BID 11/15/20 11/15/20 isosorbide mononitrate 30 mg PO QAM 11/15/20 11/15/20 lamotrigine 1 tab PO DAILY 11/15/20 11/15/20 lorazepam 1 tab PO DAILY 11/15/20 11/15/20 lurasidone [Latuda] 1 tab PO QAM 11/15/20 11/15/20 nitroglycerin 1 spray SUBLINGUAL DIRECTED 11/15/20 11/15/20 prazosin 1 cap PO BEDTIME 11/15/20 11/15/20 DS: Summary Hospital Course Hospital Course: 55-year-old male with past medical history of AFib, coronary artery disease, CHF, hypertension, anxiety who presents to the hospital with complaints of chest pain. Patient describes the chest pain as midsternal, heavy something sitting on my chest , occurring at rest, intermittent, radiating to the right arm, associated with shortness of breath, no nausea or vomiting, no abdominal pain diarrhea constipation. Patient has also noticed swelling in his legs for the past 2-3 weeks, he has shortness of breath on exertion, orthopnea, PND. he has also noticed numbness around his lips with no weakness in arms or legs. No slurred speech or changes to his speech from baseline, and no droopiness of his face. Patient denies having any cough or sputum production. No fever or chills. A temp of 98.3?, heart rate of 108, respiratory rate of 16, blood pressure 184/111 which is now 155/109, O2 of 98% on room air although did desat and is no w on 2 L of oxygen unclear how low his O2 went down to Labs are significant for WBC count of 11.9, sodium of 146, BUN of 10, creatinine of 1.19 (no baseline), AST of 39, ALT of 46, BNP of 44, COVID-19 negative, initial troponin of 20 trended to 21 with no delta Chest x-ray shows linear opacities at left lung base contact EKG shows fusion complexes with no evidence of ST T-wave changes suggestive of ACS Past medical history: AFib, CAD status post stent, CHF, hypertension, hyperlipidemia, depression and anxiety. Hospital Course problem sales section: 1.acute heart failure exacerbation systolic/diastolic. Patient came to the hospital because shortness of breath found to have CHF exacerbation: Started on IV diuresis and patient diuresed well, his shortness of breath is improved and not requiring any oxygen. Seen by Cardiology and followed during this admission recommended to start on p.o. Bumex and Aldactone upon discharge. CHF education given. Patient is to follow-up with PCP and Cardiology out patiently. His clopidogrel was stopped as per Cardiology due to history of cardiac stent for years back. Also in addition we adjusted his Coreg 18.75 mg po bid due to acceptable blood pressure and addition of Bumex/aldactone. also his High likelihood of underlying obstructive sleep apnea. Should consider workup as an outpatient. 2. CAD with stenting more than 4 years ago. : chest tightness probable sec to chf . Troponins are flat and minimally elevated due to acute heart failure. No need for anticoagulation. Can follow up with outpatient ischemic workup with his primary surgical processor. This clearly no indication for dual antiplatelet therapy at this point time. Would stop Plavix and asa . Above management discussed with the patient in detail length he understand and in agreement with the above plan, time spent 50 minutes and 50% time spent on counseling. Significant findings: As above. Procedures performed: None. Treatment and response: As above. Complications: None. Time Spent with Patient Time attestation: Total time spent providing and/or coordinating discharge services: Discharge coordination time: Greater than 30 minutes Physical Exam Vital Signs: Vital Signs: Last Vital Signs Temp 97.2 F 11/16/20 08:21 Pulse 75 11/16/20 08:21 Resp 20 11/16/20 08:21 BP 122/70 11/16/20 08:21 Pulse Ox 92 11/16/20 08:21 Body Mass Index 47.4 Physical exam: Constitutional: Not in acute distress. Cvs: rrr, [id number] , no murmur res: clear to auscultation ,no rhonchii or wheezing abd: no rebound or guarding ,nt, bs present. ext pulses present , no cyanosis neuro: axo3 , nonfocal. DS: Data Data Completed and Pending Labs on day of discharge: Laboratory Tests 11/14/20 11/14/20 11/14/20 21:38 21:38 21:38 WBC 11.9 H RBC 5.37 Hgb 15.2 Hct 46.7 MCV 87.0 MCH 28.3 MCHC 32.5 RDW 13.9 Plt Count 346 MPV 10.3 Immature Gran % (Auto) 0.5 H Neut % (Auto) 61.0 Lymph % (Auto) 23.0 Hayes % (Auto) 9.7 Eos % (Auto) 5.4 H Baso % (Auto) 0.4 Lymph # (Auto) 2.7 Hayes # (Auto) 1.2 Eos # (Auto) 0.6 H Baso # (Auto) 0.1 Abs Immat Gran (auto) 0.06 H Absolute Neuts (auto) 7.3 Absolute Nucleated RBC 0.000 Nucleated RBC % (auto) 0.0 PT 12.6 INR 1.1 APTT 35.2 Hold Blue Top SEE NOTE Sodium 146 H Potassium 4.1 Chloride 104 Carbon Dioxide 32 H Anion Gap 14 BUN 10 Creatinine 1.19 Estim Creat Clear Calc 100.8 Estimated GFR > 60 Random Glucose 84 Calcium 8.8 Total Bilirubin 0.6 AST 39 H ALT 46 H Alkaline Phosphatase 65 Troponin I High Sens B-Natriuretic Peptide Total Protein 7.0 Albumin 4.1 COVID-19 ([facility]) COVID-19 Clin Com 11/14/20 11/14/20 11/14/20 21:38 23:12 23:12 WBC RBC Hgb Hct MCV MCH MCHC RDW Plt Count MPV Immature Gran % (Auto) Neut % (Auto) Lymph % (Auto) Hayes % (Auto) Eos % (Auto) Baso % (Auto) Lymph # (Auto) Hayes # (Auto) Eos # (Auto) Baso # (Auto) Abs Immat Gran (auto) Absolute Neuts (auto) Absolute Nucleated RBC Nucleated RBC % (auto) PT INR APTT Hold Blue Top Sodium Potassium Chloride Carbon Dioxide Anion Gap BUN Creatinine Estim Creat Clear Calc Estimated GFR Random Glucose Calcium Total Bilirubin AST ALT Alkaline Phosphatase Troponin I High Sens 20.5 21.2 B-Natriuretic Peptide 44 Total Protein Albumin COVID-19 ([facility]OMI) Negative COVID-19 Clin Com See Note 11/16/20 11/16/20 04:48 04:48 WBC 9.3 RBC 5.24 Hgb 15.0 Hct 46.7 MCV 89.1 MCH 28.6 MCHC 32.1 RDW 14.0 Plt Count 318 MPV 10.6 Immature Gran % (Auto) 0.4 Neut % (Auto) 68.9 Lymph % (Auto) 17.8 L Hayes % (Auto) 5.8 Eos % (Auto) 6.7 H Baso % (Auto) 0.4 Lymph # (Auto) 1.7 Hayes # (Auto) 0.5 Eos # (Auto) 0.6 H Baso # (Auto) 0.0 Abs Immat Gran (auto) 0.04 H Absolute Neuts (auto) 6.4 Absolute Nucleated RBC 0.000 Nucleated RBC % (auto) 0.0 PT INR APTT Hold Blue Top Sodium 144 Potassium 4.3 Chloride 97 Carbon Dioxide 36 H Anion Gap 15 BUN 17 H D Creatinine 1.25 Estim Creat Clear Calc 93.9 Estimated GFR 60 Random Glucose 143 H D Calcium 8.8 Total Bilirubin AST ALT Alkaline Phosphatase Troponin I High Sens B-Natriuretic Peptide Total Protein Albumin COVID-19 ([facility]) COVID-19 Clin Com Discharge Plan Discharge Patient Disposition: Home, Self-Care Referrals: Physician,Unknown [Primary Care Provider] - Discharge Medications: New carvedilol [Coreg] 12.5 mg tablet 18.75 mg PO BID Qty: 90 RF: 0 spironolactone [Aldactone] 25 mg tablet 25 mg PO DAILY Qty: 30 RF: 0 bumetanide 2 mg tablet 2 mg PO BID Qty: 60 RF: 0 Continued atorvastatin 40 mg tablet 1 tab PO DAILY RF: 0 buspirone 5 mg tablet 1 tab PO TID RF: 0 prazosin 5 mg capsule 1 cap PO BEDTIME RF: 0 nitroglycerin 400 mcg/spray spray,non-aerosol 1 spray sublingual DIRECTED RF: 0 lorazepam 1 mg tablet 1 tab PO DAILY RF: 0 fluoxetine 20 mg capsule 3 cap PO DAILY RF: 0 lamotrigine 100 mg tablet 1 tab PO DAILY RF: 0 aripiprazole 30 mg tablet 1 tab PO QAM RF: 0 Latuda 40 mg tablet 1 tab PO QAM RF: 0 isosorbide mononitrate 30 mg tablet extended release 24 hr 30 mg PO QAM RF: 0 aspirin 81 mg Tablet,Delayed Release (Dr/Ec) 81 mg PO DAILY RF: 0 Discontinued carvedilol 25 mg tablet 1 tab PO BID RF: 0 furosemide 80 mg tablet 1 tab PO BID RF: 0 clopidogrel 75 mg tablet 75 mg PO DAILY RF: 0 Discharge Orders: Discharge Order (Routine); Ordered 11/16/20 Ordered By: Alena Morrell Diet: advance to usual diet Activity on Discharge: As tolerated Visit Report Forms: Patient Portal Discharge page Care Plan Goals: Patient came to the hospital because shortness of breath found to have CHF exacerbation: Started on IV diuresis and patient diuresed well, his shortness of breath is improved and not requiring any oxygen. Seen by Cardiology and followed during this admission recommended to start on p.o. Bumex and Aldactone upon discharge. CHF education given. Patient is to follow-up with PCP and Cardiology out patiently. His clopidogrel was stopped as per Cardiology due to history of cardiac stent for years back. Also in addition we adjusted his Coreg 18.75 mg po bid due to acceptable blood pressure and addition of Bumex/aldactone. Health Concerns: As above. Plan of Treatment: As above.
--- NOTE | 2020-11-16 12:24 | MHC.CM.PN ---
Pt being discharged home today with no services.
--- NOTE | 2020-11-16 14:21 | P.PNCA_ITS ---
Subjective Subjective Date of Service: 11/16/20 Principal diagnosis: CHF, chest pain Interval history: Patient says he feels better. He does not have any complains of currently any shortness of breath. Also not having any symptoms of chest discomfort. He says he walked the hallway. Has diuresed modestly. Review of Systems Constitutional: Reports no additional constitutional complaints Cardiovascular: Reports no additional cardiovascular complaints Respiratory: Reports no additional respiratory complaints Gastrointestinal: Reports no additional gastrointestinal complaints Reports system reviewed and no additional complaints, except as documented Hematologic/Lymphatic: Reports no additional hematologic/lymphatic complaints Physical Exam Vital Signs: Last Vital Signs Temp 97.2 F 11/16/20 08:21 Pulse 75 11/16/20 08:21 Resp 20 11/16/20 08:21 BP 122/70 11/16/20 08:21 Pulse Ox 92 11/16/20 08:21 Body Mass Index 47.4 Const General: cooperative, comfortable, alert and awake Nutritional Appearance: obese morbidly obese Orientation/consciousness: patient oriented x3 Neck Neck: Yes trachea midline, Yes supple and Yes other (Difficult to evaluate JVD) Resp Effort & Inspection: normal respiratory effort Auscultation: clear to auscultation bilaterally Cardio Palpation: normal PMI Rate: regular rate Rhythm: regular rhythm Heart sounds: S1 normal heart sound present and S2 normal heart sound present Skin General skin exam: no rashes or lesions noted Neuro General: patient oriented x3 Extrem General: No clubbing, No cyanosis and Yes edema (Edema is improved) Results Labs and Meds Result diagrams: 11/16/20 04:48 11/16/20 04:48 Lab results: Laboratory Results - last 24 hr 11/16/20 11/16/20 04:48 04:48 WBC 9.3 RBC 5.24 Hgb 15.0 Hct 46.7 MCV 89.1 MCH 28.6 MCHC 32.1 RDW 14.0 Plt Count 318 MPV 10.6 Immature Gran % (Auto) 0.4 Neut % (Auto) 68.9 Lymph % (Auto) 17.8 L Ralls % (Auto) 5.8 Eos % (Auto) 6.7 H Baso % (Auto) 0.4 Lymph # (Auto) 1.7 Ralls # (Auto) 0.5 Eos # (Auto) 0.6 H Baso # (Auto) 0.0 Abs Immat Gran (auto) 0.04 H Absolute Neuts (auto) 6.4 Absolute Nucleated RBC 0.000 Nucleated RBC % (auto) 0.0 Sodium 144 Potassium 4.3 Chloride 97 Carbon Dioxide 36 H Anion Gap 15 BUN 17 H D Creatinine 1.25 Estim Creat Clear Calc 93.9 Estimated GFR 60 Random Glucose 143 H D Calcium 8.8 Progress Note: A&P Assessment and plan (1) Acute exacerbation of CHF (congestive heart failure): Status: Acute Assessment and Plan: Finding suggestive mostly of right heart failure. This is highly likely given his morbid obesity and Pickwickian syndrome is highly likely. Outpatient sleep study should be performed. Blood pressure also needs to be better control. Also likely that he has LV diastolic dysfunction. BNP falsely negative. Has diuresed modestly and wants to go home. Would switch his Lasix to Bumex 2 mg b.i.d.. Heart failure education was provided. Advised daily weight monitoring and avoidance of salt loading and additional diuretic if he has sudden weight gain. Advised to seek medical attention if he is not able to breathe. Also add Aldactone 25 mg to his regimen. 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 Outpatient workup to be pursued. (2) CAD (coronary artery disease): Status: Acute Assessment and Plan: Prior CAD with diagnose stenting as per him. Was on dual antiplatelet therapy, which is unusual. His Plavix has been discontinued. Continue aspirin. Continue aggressive control of blood pressure. Continue high-intensity statin therapy. Patient can be discharged from cardiac perspective. Fall Risk Details Current Medications: Current Medications Generic Name Dose Route Start Last Admin Trade Name Paras PRN Reason Stop Dose Admin Acetaminophen 650 mg 11/15/20 01:13 11/15/20 08:40 Acetaminophen 325 Mg Tablet PO 650 mg Q6H PRN Administration Pain, Mild (Pain Scale 1-3) Aripiprazole 30 mg 11/15/20 09:00 11/16/20 09:25 Aripiprazole 30 Mg Tablet PO 30 mg DAILY MAGDALENE Administration Aspirin 81 mg 11/15/20 11:30 11/16/20 09:25 Aspirin Enteric Coated 81 Mg Tablet. PO 81 mg DAILY MAGDALENE Administration Atorvastatin Calcium 40 mg 11/15/20 21:00 11/15/20 21:08 Atorvastatin Calcium 40 Mg Tablet PO 40 mg BEDTIME MAGDALENE Administration Buspirone HCl 5 mg 11/15/20 09:00 11/16/20 09:25 Buspirone Hcl 5 Mg Tablet PO 5 mg TID MAGDALENE Administration Carvedilol 25 mg 11/15/20 09:00 11/15/20 21:07 Carvedilol 25 Mg Tablet PO 25 mg BID MAGDALENE Administration Protocol Docusate Sodium 100 mg 11/15/20 01:13 Docusate Sodium 100 Mg Capsule PO DAILY PRN Constipation Fluoxetine HCl 60 mg 11/15/20 09:00 11/16/20 09:25 Fluoxetine Hcl 20 Mg Capsule PO 60 mg DAILY MAGDALENE Administration Furosemide 40 mg 11/16/20 09:00 11/16/20 09:23 Furosemide 100 Mg/10 Ml Vial IVPUSH 40 mg DAILY MAGDALENE Administration Protocol Heparin Sodium (Porcine) 5,000 unit 11/15/20 07:45 11/16/20 09:24 Heparin Sodium,Porcine 5,000 Unit/Ml Vial SUBCUT 5,000 unit Q12H MAGDALENE Administration Lamotrigine 100 mg 11/15/20 09:00 11/16/20 09:25 Lamotrigine 100 Mg Tablet PO 100 mg DAILY MAGDALENE Administration Lorazepam 1 mg 11/15/20 09:00 11/16/20 09:25 Lorazepam 1 Mg Tablet PO 1 mg DAILY MAGDALENE Administration Lurasidone HCl 40 mg 11/15/20 09:00 11/16/20 09:25 Lurasidone Hcl 40 Mg Tablet PO 40 mg DAILY MAGDALENE Administration Ondansetron HCl 4 mg 11/15/20 01:13 Ondansetron Hcl 4 Mg/2 Ml Vial IVPUSH Q8H PRN Nausea and Vomiting Prazosin HCl 5 mg 11/15/20 21:00 11/15/20 21:08 Prazosin Hcl 5 Mg Capsule PO 5 mg BEDTIME MAGDALENE Administration Protocol Sodium Chloride 3 ml 11/15/20 08:00 11/16/20 09:24 0.9 % Sodium Chloride Flush 3 Ml Syringe IVFLUSH 3 ml QSHIFT MAGDALENE Administration Spironolactone 25 mg 11/16/20 09:00 11/16/20 09:25 Spironolactone 25 Mg Tablet PO 25 mg DAILY MAGDALENE Administration Protocol Time Spent With Patient Time: Total time spent is greater than 50% in coordination of care (as documented) at patient's floor/unit and/or counseling patient: Time with patient: 25 - 35 minutes
== END 2020-11-16 14:52 | disposition home or self-care (01) | DRG 292 ==
LOC: HO.ED 11-15 01:04 → HO.EDOVER 11-15 05:46 → HO.IMC 11-15 08:05
PROVIDERS: Admitting Provider Internal Medicine; Emergency Provider Internal Medicine; Visit Provider Internal Medicine
DX: I11.0 Hypertensive heart disease with heart failure (principal); Z68.42 Body mass index [BMI] 45.0-49.9, adult; I25.110 Atherosclerotic heart disease of native coronary artery with unstable angina pectoris; E78.5 Hyperlipidemia, unspecified; I50.43 Acute on chronic combined systolic (congestive) and diastolic (congestive) heart failure; F17.210 Nicotine dependence, cigarettes, uncomplicated; F32.9 Major depressive disorder, single episode, unspecified; F41.9 Anxiety disorder, unspecified; I48.0 Paroxysmal atrial fibrillation; E66.01 Morbid (severe) obesity due to excess calories; Z95.1 Presence of aortocoronary bypass graft; Z20.828 Contact with and (suspected) exposure to other viral communicable diseases; Z71.6 Tobacco abuse counseling; Z88.0 Allergy status to penicillin; Z88.5 Allergy status to narcotic agent; Z79.82 Long term (current) use of aspirin; Z79.899 Other long term (current) drug therapy
CPT/HCPCS: 36415; 70450; 71045; 80048; 80053; 83880; 84484; 85025; 85027; 85610; 85730; 87635; 93005; 96374; 96375; 96376; 99219; 99285; J1940; J2270; J2405